=== PATIENT | male | born 1985 | race Caucasian/White ===

== ENCOUNTER 2019-10-20 22:19 | Emergency (ER) | payer BC, OTHER ==
[~2019-10-20] VITALS: Ht 175 cm; Wt 87.5 kg
--- OUTSIDE RECORDS SUMMARY | 2019-10-20 22:25 | XMS REPORT | Continuity of Care Document ---
Author Organization Unknown Address Unknown Phone Unavailable Allergies There is no data. Medications There is no data. Problems There is no data. Procedures There is no data. Results There is no data. Encounters ACCT No. Visit Date/Time Discharge Status Pt. Type Provider Facility Loc./Unit Complaint [id number] 05/16/2019 11:20:00 05/16/2019 23:59: 59 [facility] [id number] 03/07/2016 14:03:05 6 23:59:59 DIS Outpatient [facility] Pre employment drug screen
[2019-10-20] MEDS ORDERED: LORazepam 0.5 MG (ATIVAN) TABLET PO STA (22:49)
--- NOTE | 2019-10-20 22:49 | ED Upper Extremity ---
General Chief Complaint: Upper Extremity Stated Complaint: THROBBING IN LEFT FOREARM AND FINGERS Nursing Triage Note: Pt complaining of left forearm pain that started early this morning. Pt describes it as a throbbing and tingling feeling Nursing Sepsis Screen: No Definite Risk Source: patient History of Present Illness Date Seen by Provider: Oct 20, 2019 Time Seen by Provider: 22:20 Initial Comments Patient is a 34-year-old right-handed male who presents with left arm pain throbbing and tingling. Pain is located over extensor surface reproduces with palpation and left her movement and radiates to left forearm and wrist. Discomfort is rated as mild. Denies shoulder pain chest pain, shortness of breath, nausea sweats, abdominal pain or anginal Coumadin. Symptoms are not worse with exertion. Patient denies excessive arm use. No other acute symptoms or complaints. Onset: this morning Pain/Injury Location: left arm, left forearm Allergies and Home Medications Allergies Coded Allergies: No Known Drug Allergies (Unverified , 10/20/19) Patient Home Medication List Home Medication List Reviewed: Yes Review of Systems Constitutional: see HPI EENTM: see HPI Respiratory: see HPI Gastrointestinal: see HPI Genitourinary: see HPI Musculoskeletal: see HPI Skin: see HPI Psychiatric/Neurological: See HPI Past Qagwdly-Lrdnal-Xxeyxt Hx Past Med/Social Hx: Reviewed Nursing Past Med/Soc Hx Patient Social History Alcohol Use: Occasionally Uses Recreational Drug Use: No Smoking Status: Former Smoker 2nd Hand Smoke Exposure: No Recent Foreign Travel: No Contact w/Someone Who Travel: No Recent Infectious Disease Expo: No Recent Hopitalizations: No Physical Abuse: No Sexual Abuse: No Past Medical History Surgeries: No Respiratory: No Cardiac: No Neurological: No Genitourinary: No Gastrointestinal: No Musculoskeletal: No Endocrine: No HEENT: No Cancer: No Psychosocial: No Integumentary: No Blood Disorders: No Physical Exam Vital Signs Vital Signs - First Documented 10/20/19 22:25 Temp 36.9 Pulse 125 Resp 16 B/P (MAP) 147/97 (114) Pulse Ox 98 O2 Delivery Room Air Capillary Refill : Less Than 3 Seconds Height, Weight, BMI Height: '" Weight: lbs. oz. kg; 28.00 BMI Method: General Appearance: WD/WN, no apparent distress HEENT: PERRL/EOMI, pharynx normal Neck: non-tender, supple Cardiovascular: regular rate, rhythm Respiratory: lungs clear Gastrointestinal: non tender, soft Back: normal inspection Shoulder: non-tender Elbow/Forearm: normal inspection, pain, soft tissue tenderness (left forearm soft tissue tenderness. Reproduces with flexion and pronation. Pulses 2+ and symmetric.) Wrist: Yes normal inspection, Yes non-tender Hand: normal inspection, non-tender Neurologic/Tendon: normal sensation Neurologic/Psychiatric: alert, oriented x 3, other (anxious) Skin: normal color, warm/dry Progress/Results/Core Measures Results/Orders Lab Results Laboratory Tests Test 10/20/19 22:57 Range/Units White Blood Count 6.5 4.3-11.0 10^3/uL Red Blood Count 4.75 4.35-5.85 10^6/uL Hemoglobin 15.0 13.3-17.7 G/DL Hematocrit 43 40-54 % Mean Corpuscular Volume 90 80-99 FL Mean Corpuscular Hemoglobin 32 25-34 PG Mean Corpuscular Hemoglobin Concent 35 32-36 G/DL Red Cell Distribution Width 12.3 10.0-14.5 % Platelet Count 155 130-400 10^3/uL Mean Platelet Volume 9.2 7.4-10.4 FL Neutrophils (%) (Auto) 78 H 42-75 % Lymphocytes (%) (Auto) 14 12-44 % Monocytes (%) (Auto) 7 0-12 % Eosinophils (%) (Auto) 0 0-10 % Basophils (%) (Auto) 1 0-10 % Neutrophils # (Auto) 5.1 1.8-7.8 X 10^3 Lymphocytes # (Auto) 0.9 L 1.0-4.0 X 10^3 Monocytes # (Auto) 0.4 0.0-1.0 X 10^3 Eosinophils # (Auto) 0.0 0.0-0.3 10^3/uL Basophils # (Auto) 0.1 0.0-0.1 10^3/uL D-Dimer 0.74 H 0.00-0.49 UG/ML Sodium Level 135 135-145 MMOL/L Potassium Level 3.6 3.6-5.0 MMOL/L Chloride Level 102 98-107 MMOL/L Carbon Dioxide Level 20 L 21-32 MMOL/L Anion Gap 13 5-14 MMOL/L Blood Urea Nitrogen 13 7-18 MG/DL Creatinine 1.29 0.60-1.30 MG/DL Estimat Glomerular Filtration Rate > 60 BUN/Creatinine Ratio 10 Glucose Level 112 H 70-105 MG/DL Calcium Level 9.2 8.5-10.1 MG/DL Troponin I < 0.30 <0.30 NG/ML My Orders Orders - RIRI CHUNG DO Ekg Tracing (10/20/19 22:36) Cbc With Automated Diff (10/20/19 22:49) Basic Metabolic Panel (10/20/19 22:49) Troponin I Fs (10/20/19 22:49) Lorazepam Tablet (Ativan Tablet) (10/20/19 22:49) Fibrin Degradation Products (10/20/19 22:49) Enoxaparin Injection (Lovenox Injection) (10/20/19 23:30) Medications Given in ED Current Medications Medications Dose Ordered Sig/Ricardo Route Start Time Stop Time Status Last Admin Dose Admin Enoxaparin Sodium 120 mg ONCE ONCE SC 10/20/19 23:30 10/20/19 23:31 DC 10/20/19 23:40 120 MG Vital Signs/I&O 10/20/19 22:25 Temp 36.9 Pulse 125 Resp 16 B/P (MAP) 147/97 (114) Pulse Ox 98 O2 Delivery Room Air Blood Pressure Mean: 114 Departure Communication (Admissions) EKG: reviewed. No acute ST T wave changes. None-exertional reproducible left arm pain. NO PCP or FARZAD. No acute ST chagnes. Troponin negative. Patient's d-dimer is positive. Single dose of Lovenox given. Unfortunately, ultrasound is not available at this facility, resolved. Patient offered transfer to ER with ultrasounds capability available or single dose of Lovenox with follow-up tomorrow at [facility] emergency department for ultrasound. Patient prefers to return to the ED tomorrow to have an ultrasound performed. He agrees to return sooner should he have new or worsening symptoms. Impression Primary Impression: Left arm pain Disposition: 01 HOME, SELF-CARE Condition: Stable Departure-Patient Inst. Referrals: MARSHALL VÁZQUEZ APRN (PCP/Family) Primary Care Physician Patient Instructions: Deep Vein Thrombosis (Blood Clots in the Arm) (DC) Add. Discharge Instructions: Please return to the ED between the hours of 9 Am and 3 PM tomorrow for ultrasound of left arm for evaluation of blood clot. Return to ED sooner if you have concerning symptoms. All discharge instructions reviewed with patient and/or family. Voiced understanding. RIRI CHUNG DO Oct 20, 2019 22:49
[2019-10-20 23:04] LABS: BASOPHILS # (AUTO) 0.1 10^3/uL (0.0-0.1); BASOPHILS % (AUTO) 1 % (0-10); EOSINOPHILS % (AUTO) 0 % (0-10); HEMATOCRIT 43 % (40-54); LYMPHOCYTES # (AUTO) 0.9 X 10^3 (1.0-4.0); LYMPHOCYTES % (AUTO) 14 % (12-44); MEAN CORPUSCULAR HEMOGLOBIN 32 PG (25-34); MEAN CORPUSCULAR HGB CONC 35 G/DL (32-36); MEAN CORPUSCULAR VOLUME 90 FL (80-99); MEAN PLATELET VOLUME 9.2 FL (7.4-10.4); MONOCYTES # (AUTO) 0.4 X 10^3 (0.0-1.0); MONOCYTES % (AUTO) 7 % (0-12); NEUTROPHILS # (AUTO) 5.1 X 10^3 (1.8-7.8); NEUTROPHILS % (AUTO) 78 % (42-75); PLATELET COUNT 155 10^3/uL (130-400); RED CELL DISTRIBUTION WIDTH 12.3 % (10.0-14.5); WHITE BLOOD COUNT 6.5 10^3/uL (4.3-11.0)
[2019-10-20 23:21] LABS: BUN/CREATININE RATIO 10; CALCIUM 9.2 MG/DL (8.5-10.1); CARBON DIOXIDE 20 MMOL/L (21-32); CHLORIDE 102 MMOL/L (98-107); CREATININE SERUM 1.29 MG/DL (0.60-1.30); GFR ESTIMATED > 60; GLUCOSE 112 MG/DL (70-105); POTASSIUM 3.6 MMOL/L (3.6-5.0); SODIUM 135 MMOL/L (135-145)
[2019-10-20] MEDS ORDERED: ENOXAPARIN 60 MG/0.6 ML (LOVENOX) SYR SC ONE (23:30)
[2019-10-20 23:46] VITALS: BP 144/77
== END 2019-10-20 23:51 | disposition home or self-care (01) ==
LOC: ER FS 22:21
DX: M79.632 Pain in left forearm (principal); Z87.891 Personal history of nicotine dependence
CPT/HCPCS: 36415; 80048; 84484; 85025; 85379; 93005

== ENCOUNTER → 2021-12-02 | Outpatient (CLI) | payer BC ==
--- NOTE | 2021-12-02 18:36 | Diagnostic Imaging Report ---
INDICATION: Knee pain. COMPARISON: None available. TECHNIQUE: Three radiographs of the left knee dated 12/02/2021. FINDINGS: No acute fracture or dislocation. No destructive osseous process. Minimal medial joint space narrowing. The lateral compartment is well maintained. Prominent knee joint effusion. No suspicious radiopaque foreign body. IMPRESSION: No acute osseous abnormality with prominent knee joint effusion. Should symptoms persist, consideration for an MRI of the knee would be recommended. Minimal degenerative changes, greatest within the medial compartment. Dictated on workstation # [id number]
== END ==
LOC: RAD FS 15:17
PROVIDERS: ATTEND Nurse Practitioner
DX: M25.562 Pain in left knee (principal)
CPT/HCPCS: 73562

== ENCOUNTER → 2022-05-26 | Outpatient (CLI) | payer SELFPAY | END | disposition home or self-care (01) | LOC: LAB 16:20 | PROVIDERS: ATTEND Urology | DX: Z30.8 Encounter for other contraceptive management (principal) | CPT/HCPCS: 89321 ==